=== PATIENT | male | born 1960 | race Caucasian/White ===

== ENCOUNTER 2017-11-19 16:05 | Inpatient (IN) | payer MEDICAID, MEDICARE ==
[~2017-11-19] VITALS: Ht 165.1 cm; Wt 77.1 kg
[~2017-11-19 16:05] MED LIST: ATOR80TA PO; BENA40TA3 PO; CLON0.3T PO; DILT180C3 PO; DOCU-138 PO; FISH OIL 1,01 CAP.EC PO; FURO-152 PO; GLIP5TAB12 PO; HYDR-4135 PO; METO-293 PO; METO25TA6 PO; NIAC500T2 PO; RANI150C12 PO
[2017-11-19 17:34] LABS: BASOPHILS % 0.6 % (0.0-2.0); EOSINOPHILS % 11.9 % (0.0-5.0); HEMATOCRIT. 33.5 % (42.0-52.0); HEMOGLOBIN. 11.2 g/dL (14.0-18.0); LYMPHOCYTES % 17.8 % (20.0-50.0); MEAN CORPUSCULAR HEMOGLOBIN 31.7 pg (28.0-32.0); MEAN CORPUSCULAR VOLUME 94.5 fL (80.0-94.0); MEAN PLATELET VOLUME 7.3 fl (7.4-10.4); MONOCYTES % 12.9 % (2.0-8.0); NEUTROPHILS % 56.8 % (40.0-76.0); PLATELET 209 x1000/uL (130-400); RED BLOOD CELL COUNT 3.54 mill/uL (4.7-6.1); RED CELL DISTRIBUTION WIDTH 13.9 % (11.6-14.6)
[2017-11-19 17:38] LABS: CHLORIDE 106 mEq/L (98-107)
[2017-11-19 17:40] LABS: PARTIAL THROMBOPLASTIN TIME 27.4 sec (23.4-31.0); PROTHROMBIN TIME 10.5 sec (9.4-11.6)
[2017-11-19] MEDS ORDERED: FUROSEMIDE 100MG/10ML VIAL IV STA (18:05)
[2017-11-19] MEDS ORDERED: ALBUTEROL (0.083%) 2.5MG/3ML NEB HHN ONE (18:15)
[2017-11-19] MEDS ORDERED: DEXTROSE 50% WATER 50ML SYRINGE IV ONE (18:15)
[2017-11-19] MEDS ORDERED: SODIUM BICARBONATE 8.4% 1 MEQ/ML 50ML SYR IV ONE (18:15)
[2017-11-19] MEDS ORDERED: CALCIUM CHLORIDE 1GM/10ML SYR IV ONE (18:15)
[2017-11-19] MEDS ORDERED: INSULIN REGULAR (HUMULIN R) 300UNITS/3ML IV ONE (18:15)
[2017-11-19] MEDS ORDERED: IPRATROPIUM/ALBUTEROL 0.5-3(2.5)MG/3ML NEB HHN PRN (18:30)
[2017-11-19] MEDS ORDERED: DIPHENHYDRAMINE 50MG/ML VIAL IV PRN (18:30)
[2017-11-19] MEDS: METOPROLOL TARTRATE 50MG TABLET PO SCH (21:00)
[2017-11-19] MEDS: BENAZEPRIL 20MG TABLET PO SCH (21:21)
[2017-11-19] MEDS: HYDRALAZINE HCL 100MG TABLET PO SCH (22:00)
[2017-11-19] MEDS: CLONIDINE 0.1MG TABLET PO SCH (22:00)
[2017-11-19] MEDS ORDERED: ATORVASTATIN CALCIUM 40MG TABLET PO SCH (22:00)
[2017-11-19 22:21] VITALS: BP 141/69
[2017-11-19] MEDS ORDERED: DEXTROSE 50% WATER 50ML SYRINGE IV PRN (23:45)
[2017-11-20] VITALS: BP 184/86
[2017-11-20 04:00] VITALS: BP 144/88
[2017-11-20] MEDS: HYDRALAZINE HCL 100MG TABLET PO SCH (06:00)
[2017-11-20] MEDS: CLONIDINE 0.1MG TABLET PO SCH (06:00)
[2017-11-20 06:37] LABS: HEMATOCRIT 33.1 % (42.0-52.0); HEMOGLOBIN 11.2 g/dL (14.0-18.0); MEAN CORPUSCULAR HEMOGLOBIN 31.6 pg (28.0-32.0); PLATELET 203 x1000/uL (130-400); RED BLOOD CELL COUNT 3.55 mill/uL (4.7-6.1); RED CELL DISTRIBUTION WIDTH 13.8 % (11.6-14.6)
[2017-11-20] MEDS ORDERED: BLOOD SUGAR DIAGNOSTIC STRIP TEST SCH (07:20)
[2017-11-20] MEDS ORDERED: INSULIN LISPRO 100 UNITS/ML SUBCUT SCH (07:50)
[2017-11-20 08:00] VITALS: BP 196/99
[2017-11-20] MEDS ORDERED: DILTIAZEM HCL 180MG CAPSULE CD 24HR PO SCH (09:00)
[2017-11-20] MEDS: METOPROLOL TARTRATE 50MG TABLET PO SCH (09:10)
[2017-11-20] MEDS: BENAZEPRIL 20MG TABLET PO SCH (09:10)
[2017-11-20 12:00] VITALS: BP 197/91
[2017-11-20] MEDS ORDERED: CLONIDINE 0.2MG TABLET PO NR (12:15)
[2017-11-20 12:54] VITALS: BP 197/91
[2017-11-20] MEDS ORDERED: CLONIDINE 0.3MG TABLET PO SCH (14:00)
== END 2017-11-20 13:30 | disposition home or self-care (01) | DRG 291 ==
LOC: CANRESERV 17:29 → ENRESERV 17:29 → ER 18:01 → 6WST 18:21 → EDBEDREQ 18:24 → ENRESERV 20:08
PROVIDERS: ADMIT Internal Medicine; ATTEND Internal Medicine
PROC: 5A1D70Z Performance of Urinary Filtration, Intermittent, Less than 6 Hours Per Day (ICD-10-PCS; principal; 2017-11-20)
DX: I13.2 Hypertensive heart and chronic kidney disease with heart failure and with stage 5 chronic kidney disease, or end stage renal disease (principal); N18.6 End stage renal disease; J96.00 Acute respiratory failure, unspecified whether with hypoxia or hypercapnia; K85.90 Acute pancreatitis without necrosis or infection, unspecified; I50.43 Acute on chronic combined systolic (congestive) and diastolic (congestive) heart failure; E87.5 Hyperkalemia; E78.5 Hyperlipidemia, unspecified; E11.22 Type 2 diabetes mellitus with diabetic chronic kidney disease; I16.0 Hypertensive urgency; D63.8 Anemia in other chronic diseases classified elsewhere; E78.00 Pure hypercholesterolemia, unspecified; Z86.73 Personal history of transient ischemic attack (TIA), and cerebral infarction without residual deficits; Z99.2 Dependence on renal dialysis; Z79.899 Other long term (current) drug therapy; Z79.84 Long term (current) use of oral hypoglycemic drugs
CPT/HCPCS: 36415; 71045; 80048; 80053; 82962; 83690; 84484; 85025; 85027; 85610; 85730; 93005; 96374; 96375; 99285; J1815; J1940; J3490; J7030

== ENCOUNTER 2018-03-12 17:03 | Emergency (ER) | payer MEDICARE ==
[~2018-03-12] VITALS: Ht 165.1 cm; Wt 82.0 kg
[~2018-03-12 17:03] MED LIST changes: +AMLO10TA80 MT; +ATOR40TA70 MT; -ATOR80TA PO; -BENA40TA3 PO; +CINA30 MT; -CLON0.3T PO; +CLOP75TA33 MT; -DILT180C3 PO; -DOCU-138 PO; -FISH OIL 1,01 CAP.EC PO; +FOLI0.8T23 MT; -FURO-152 PO; -GLIP5TAB12 PO; -HYDR-4135 PO; +INSU100I28 SQ; -METO-293 PO; +METO-411 MT; -METO25TA6 PO; -NIAC500T2 PO; -RANI150C12 PO
[2018-03-12 19:33] LABS: BASOPHILS % 0.4 % (0.0-2.0); EOSINOPHILS % 3.8 % (0.0-5.0); HEMATOCRIT. 36.6 % (42.0-52.0); HEMOGLOBIN. 11.9 g/dL (14.0-18.0); LYMPHOCYTES % 11.8 % (20.0-50.0); MEAN CORPUSCULAR HEMOGLOBIN 30.3 pg (28.0-32.0); MEAN CORPUSCULAR VOLUME 93.1 fL (80.0-94.0); MEAN PLATELET VOLUME 7.1 fl (7.4-10.4); MONOCYTES % 5.7 % (2.0-8.0); NEUTROPHILS % 78.3 % (40.0-76.0); PLATELET 249 x1000/uL (130-400); RED BLOOD CELL COUNT 3.93 mill/uL (4.7-6.1)
[2018-03-12 19:40] LABS: PROTHROMBIN TIME 9.9 sec (9.1-11.1)
[2018-03-12 19:44] LABS: CHLORIDE 101 mEq/L (98-107)
[2018-03-12] MEDS ORDERED: MORPHINE SULFATE 4 MG/ML CPJ (NOT FOR IM USE) IV ONE (21:15)
[2018-03-12 22:29] VITALS: BP 125/85
== END 2018-03-12 22:31 | disposition home or self-care (01) ==
LOC: ER 19:22
DX: K80.50 Calculus of bile duct without cholangitis or cholecystitis without obstruction (principal); E11.9 Type 2 diabetes mellitus without complications; I10 Essential (primary) hypertension; Z86.73 Personal history of transient ischemic attack (TIA), and cerebral infarction without residual deficits; Z98.890 Other specified postprocedural states; Z79.4 Long term (current) use of insulin; Z79.899 Other long term (current) drug therapy
CPT/HCPCS: 36415; 74176; 76705; 99285

== ENCOUNTER 2018-04-20 01:52 | Inpatient (IN) | payer MEDICARE ==
[~2018-04-20] VITALS: Ht 170.2 cm; Wt 76.2 kg
[2018-04-20 03:36] LABS: BASOPHILS % 0.5 % (0.0-2.0); HEMATOCRIT. 32.2 % (42.0-52.0); HEMOGLOBIN. 10.8 g/dL (14.0-18.0); LYMPHOCYTES % 18.5 % (20.0-50.0); MEAN CORPUSCULAR HEMOGLOBIN 30.6 pg (28.0-32.0); MEAN CORPUSCULAR VOLUME 90.7 fL (80.0-94.0); MEAN PLATELET VOLUME 7.7 fl (7.4-10.4); MONOCYTES % 9.8 % (2.0-8.0); NEUTROPHILS % 58.2 % (40.0-76.0); PLATELET 216 x1000/uL (130-400); RED BLOOD CELL COUNT 3.55 mill/uL (4.7-6.1); RED CELL DISTRIBUTION WIDTH 14.1 % (11.6-14.6)
[2018-04-20 03:42] LABS: CHLORIDE 100 mEq/L (98-107)
[2018-04-20 03:43] LABS: PROTHROMBIN TIME 10.4 sec (9.1-11.1)
[2018-04-20 03:46] LABS: ETHANOL BLOOD < 10 mg/dL
[2018-04-20 04:27] LABS: *COCAINE SCREEN URINE NEGATIVE (NEGATIVE)
[2018-04-20 04:28] LABS: *AMPHETAMINES SCREEN URINE NEGATIVE (NEGATIVE); *BARBITURATES SCREEN URINE NEGATIVE (NEGATIVE); CANNABINOID URINE SCREEN NEGATIVE (NEGATIVE); METHADONE URINE SCREEN NEGATIVE (NEGATIVE); OPIATES URINE SCREEN NEGATIVE (NEGATIVE); PHENCYCLIDINE URINE SCREEN NEGATIVE (NEGATIVE)
[2018-04-20 04:29] LABS: *BENZODIAZEPINES SCREEN URINE NEGATIVE (NEGATIVE)
[2018-04-20 04:32] LABS: CLARITY URINE CLEAR (CLEAR); COLOR URINE YELLOW (YELLOW); KETONES URINE NEGATIVE (NEGATIVE); LEUKOCYTE ESTERASE URINE NEGATIVE (NEGATIVE); NITRITE URINE NEGATIVE (NEGATIVE); OCCULT BLOOD URINE 1+ (NEGATIVE); PH URINE 7.5 (4.5-8.0); PROTEIN URINE 4+ (NEGATIVE); SPECIFIC GRAVITY URINE 1.012 (1.005-1.030); UROBILINOGEN URINE 0.2 E.U./dL (0.2-1.0)
[2018-04-20] MEDS ORDERED: METOPROLOL TARTRATE 25MG TABLET PO SCH (11:00)
[2018-04-20] MEDS ORDERED: ASPIRIN 325MG TABLET PO SCH (11:00)
[2018-04-20 12:00] VITALS: BP 161/93
[2018-04-20] MEDS ORDERED: DEXTROSE 50% WATER 50ML SYRINGE IV PRN (12:15)
[2018-04-20] MEDS: ASPIRIN 81MG TABLET PO SCH (12:31)
[2018-04-20] MEDS: BLOOD SUGAR DIAGNOSTIC STRIP TEST SCH ×3 (13:16→21:00)
[2018-04-20] MEDS: INSULIN LISPRO 100 UNITS/ML SUBCUT SCH ×3 (13:29→20:57)
[2018-04-20 13:51] VITALS: BP 161/93
[2018-04-20 16:00] VITALS: BP 165/83
[2018-04-20] MEDS: LOSARTAN POTASSIUM 50 MG TABLET PO SCH (18:00)
[2018-04-20] MEDS ORDERED: HYDROCODONE/ACETAMINOPHEN 5/325MG TABLET PO PRN (19:45)
[2018-04-20] MEDS ORDERED: TEMAZEPAM 15MG CAPSULE PO PRN (19:45)
[2018-04-20] MEDS ORDERED: DIPHENHYDRAMINE 50MG/ML VIAL IV PRN (19:45)
[2018-04-20] MEDS ORDERED: ACETAMINOPHEN 650MG/20.3ML UDC PO PRN (19:45)
[2018-04-20] MEDS ORDERED: CLONIDINE 0.1MG TABLET PO PRN ×2 (19:45→20:15)
[2018-04-20] MEDS ORDERED: DOCUSATE SODIUM 100MG CAPSULE PO PRN (19:45)
[2018-04-20] MEDS ORDERED: ACETAMINOPHEN 650MG SUPP PR PRN (19:45)
[2018-04-20 20:00] VITALS: BP 134/61
[2018-04-20] MEDS: METOPROLOL TARTRATE 50MG TABLET PO SCH (20:52)
[2018-04-20] MEDS: HEPARIN 5000 UNITS/ML VIAL SUBCUT SCH (20:54)
[2018-04-21] VITALS: BP 120/57
[2018-04-21 04:00] VITALS: BP 151/70
[2018-04-21 07:11] LABS: CHLORIDE 100 mEq/L (98-107)
[2018-04-21 07:20] LABS: HEMATOCRIT 33.1 % (42.0-52.0); HEMOGLOBIN 11.1 g/dL (14.0-18.0); MEAN CORPUSCULAR HEMOGLOBIN 30.6 pg (28.0-32.0); MEAN CORPUSCULAR VOLUME 91.4 fL (80.0-94.0); PLATELET 219 x1000/uL (130-400); RED BLOOD CELL COUNT 3.62 mill/uL (4.7-6.1); RED CELL DISTRIBUTION WIDTH 14.1 % (11.6-14.6); TOTAL IRON BINDING CAPACITY 201 ug/dL (250-450)
[2018-04-21] MEDS: BLOOD SUGAR DIAGNOSTIC STRIP TEST SCH ×2 (07:20→12:20)
[2018-04-21 07:23] LABS: LDL CHOLESTEROL 62 mg/dL (5-100)
[2018-04-21 07:25] LABS: HDL CHOLESTEROL 37 mg/dL (40-59)
[2018-04-21] MEDS: INSULIN LISPRO 100 UNITS/ML SUBCUT SCH ×2 (07:50→12:50)
[2018-04-21 08:00] VITALS: BP 158/79
[2018-04-21] MEDS: ASPIRIN 81MG TABLET PO SCH (09:22)
[2018-04-21] MEDS: METOPROLOL TARTRATE 50MG TABLET PO SCH (09:22)
[2018-04-21] MEDS: HEPARIN 5000 UNITS/ML VIAL SUBCUT SCH (09:22)
[2018-04-21] MEDS: LOSARTAN POTASSIUM 50 MG TABLET PO SCH (09:22)
[2018-04-21 15:13] VITALS: BP 170/84
[2018-04-21] MEDS ORDERED: HYDRALAZINE 20MG/ML VIAL IV ONE (16:30)
[2018-04-21 16:44] VITALS: BP 160/79
[2018-04-21] MEDS ORDERED: AMLODIPINE 5MG TABLET PO ONE (16:45)
[2018-04-21] MEDS ORDERED: FERROUS SULFATE 325MG TABLET PO SCH (17:00)
[2018-04-21 17:25] VITALS: BP 160/77
== END 2018-04-21 18:30 | disposition home or self-care (01) | DRG 291 ==
LOC: ER 02:57 → 6WST 04:06 → EDBEDREQ 04:09 → EDBEDREQTM 04:09 → ENRESERV 09:56
PROVIDERS: ADMIT Internal Medicine; ATTEND Internal Medicine
PROC: 5A1D70Z Performance of Urinary Filtration, Intermittent, Less than 6 Hours Per Day (ICD-10-PCS; principal; 2018-04-20)
DX: I13.2 Hypertensive heart and chronic kidney disease with heart failure and with stage 5 chronic kidney disease, or end stage renal disease (principal); I50.43 Acute on chronic combined systolic (congestive) and diastolic (congestive) heart failure; N18.6 End stage renal disease; R06.03 Acute respiratory distress; E78.5 Hyperlipidemia, unspecified; E11.22 Type 2 diabetes mellitus with diabetic chronic kidney disease; D64.9 Anemia, unspecified; Z79.4 Long term (current) use of insulin; Z79.899 Other long term (current) drug therapy; Z99.2 Dependence on renal dialysis
CPT/HCPCS: 36415; 71045; 80061; 80305; 82962; 83036; 83540; 83550; 83605; 83880; 84443; 84484; 85027; 93005; 93306; 93970; 99285; G0482; J0360; J1644; J1815

== ENCOUNTER 2018-04-30 20:05 | Inpatient (IN) | payer MEDICARE ==
[~2018-04-30] VITALS: Ht 193 cm; Wt 80.7 kg
[~2018-04-30 20:05] MED LIST changes: -AMLO10TA80 MT; -ATOR40TA70 MT; -CLOP75TA33 MT; -METO-411 MT
[2018-04-30] MEDS ORDERED: IPRATROPIUM/ALBUTEROL 0.5-3(2.5)MG/3ML NEB HHN ONE (21:00)
[2018-04-30] MEDS ORDERED: FUROSEMIDE 40MG/4ML VIAL IV ONE (21:00)
[2018-04-30] MEDS ORDERED: ASPIRIN 81MG TABLET PO ONE (21:00)
[2018-04-30 22:18] LABS: BASOPHILS % 0.6 % (0.0-2.0); CHLORIDE 104 mEq/L (98-107); EOSINOPHILS % 13.4 % (0.0-5.0); HEMATOCRIT. 34.7 % (42.0-52.0); HEMOGLOBIN. 11.5 g/dL (14.0-18.0); LYMPHOCYTES % 17.9 % (20.0-50.0); MEAN CORPUSCULAR HEMOGLOBIN 30.3 pg (28.0-32.0); MEAN CORPUSCULAR VOLUME 91.7 fL (80.0-94.0); MEAN PLATELET VOLUME 7.2 fl (7.4-10.4); MONOCYTES % 8.8 % (2.0-8.0); NEUTROPHILS % 59.3 % (40.0-76.0); PLATELET 264 x1000/uL (130-400); RED BLOOD CELL COUNT 3.78 mill/uL (4.7-6.1); RED CELL DISTRIBUTION WIDTH 14.6 % (11.6-14.6)
[2018-04-30 22:19] LABS: PROTHROMBIN TIME 10.2 sec (9.1-11.1)
[2018-05-01] MEDS ORDERED: CLONIDINE 0.2MG TABLET PO ONE (00:30)
[2018-05-01] MEDS ORDERED: LEVOFLOXACIN 750MG PREMIX 150 ML IV ONE (00:30)
[2018-05-01 03:32] VITALS: BP 170/88
[2018-05-01 04:00] VITALS: BP 162/83
[2018-05-01 08:00] VITALS: BP 155/66
[2018-05-01] MEDS ORDERED: INFLUENZA VIRUS VACCINE(AFLURIA) 0.5ML SYR IM ONE (10:00)
[2018-05-01] MEDS ORDERED: DOCUSATE SODIUM 100MG CAPSULE PO PRN (10:30)
[2018-05-01] MEDS ORDERED: MAGNESIUM/ALUMINUM HYDROXIDE/SIMETHICONE 30ML UDC PO PRN (10:30)
[2018-05-01] MEDS ORDERED: GUAIFENESIN 200MG/10ML SUGAR FREE UDC PO PRN (10:30)
[2018-05-01] MEDS ORDERED: DIPHENHYDRAMINE 50MG/ML VIAL IV PRN (10:30)
[2018-05-01] MEDS ORDERED: ONDANSETRON HCL 4MG/2ML INJ IV PRN (10:30)
[2018-05-01] MEDS ORDERED: HYDROCODONE/ACETAMINOPHEN 5/325MG TABLET PO PRN (10:30)
[2018-05-01] MEDS ORDERED: IPRATROPIUM/ALBUTEROL 0.5-3(2.5)MG/3ML NEB INH PRN (10:30)
[2018-05-01] MEDS ORDERED: ACETAMINOPHEN 650MG SUPP PR PRN (10:30)
[2018-05-01] MEDS ORDERED: ACETAMINOPHEN 325MG TABLET PO PRN (10:30)
[2018-05-01] MEDS ORDERED: DEXTROSE 50% WATER 50ML SYRINGE IV PRN (10:30)
[2018-05-01] MEDS ORDERED: LORAZEPAM 0.5MG TABLET PO PRN (10:30)
[2018-05-01 11:34] VITALS: BP 119/71
[2018-05-01 12:00] VITALS: BP 144/77
[2018-05-01] MEDS: INSULIN LISPRO 100 UNITS/ML SUBCUT SCH ×3 (12:06→20:58)
[2018-05-01] MEDS: BLOOD SUGAR DIAGNOSTIC STRIP TEST SCH ×3 (12:20→20:57)
[2018-05-01] MEDS: AMLODIPINE 5MG TABLET PO SCH (13:15)
[2018-05-01] MEDS: HEPARIN 5000 UNITS/ML VIAL SUBCUT SCH ×2 (13:15→20:43)
[2018-05-01 13:16] LABS: HEMATOCRIT 30.8 % (42.0-52.0); HEMOGLOBIN 10.2 g/dL (14.0-18.0); MEAN CORPUSCULAR HEMOGLOBIN 30.5 pg (28.0-32.0); MEAN CORPUSCULAR VOLUME 92.4 fL (80.0-94.0); PLATELET 223 x1000/uL (130-400); RED BLOOD CELL COUNT 3.33 mill/uL (4.7-6.1); RED CELL DISTRIBUTION WIDTH 14.7 % (11.6-14.6)
[2018-05-01 20:31] VITALS: BP 147/71
[2018-05-01] MEDS ORDERED: LEVOFLOXACIN 250MG PREMIX 50 ML IV SCH (23:00)
[2018-05-02] VITALS (7 sets, daily range): BP systolic 157–184; BP diastolic 78–97
[2018-05-02] MEDS: CLONIDINE 0.1MG TABLET PO PRN (01:10)
[2018-05-02] MEDS: BLOOD SUGAR DIAGNOSTIC STRIP TEST SCH ×4 (06:02→21:13)
[2018-05-02] MEDS: INSULIN LISPRO 100 UNITS/ML SUBCUT SCH ×4 (07:05→21:14)
[2018-05-02 07:45] LABS: BASOPHILS % 0.5 % (0.0-2.0); EOSINOPHILS % 14.9 % (0.0-5.0); HEMATOCRIT. 31.3 % (42.0-52.0); HEMOGLOBIN. 10.7 g/dL (14.0-18.0); LYMPHOCYTES % 20.2 % (20.0-50.0); MEAN CORPUSCULAR HEMOGLOBIN 31.1 pg (28.0-32.0); MEAN CORPUSCULAR VOLUME 90.8 fL (80.0-94.0); MEAN PLATELET VOLUME 7.2 fl (7.4-10.4); MONOCYTES % 11.4 % (2.0-8.0); PLATELET 235 x1000/uL (130-400); RED BLOOD CELL COUNT 3.45 mill/uL (4.7-6.1); RED CELL DISTRIBUTION WIDTH 14.7 % (11.6-14.6)
[2018-05-02 08:06] LABS: CHLORIDE 102 mEq/L (98-107)
[2018-05-02 08:27] LABS: PHOSPHORUS 4.9 mg/dL (2.5-4.9)
[2018-05-02 08:29] LABS: LDL CHOLESTEROL 51 mg/dL (5-100)
[2018-05-02 08:30] LABS: HDL CHOLESTEROL 41 mg/dL (40-59)
[2018-05-02] MEDS: AMLODIPINE 5MG TABLET PO SCH (08:34)
[2018-05-02] MEDS: HEPARIN 5000 UNITS/ML VIAL SUBCUT SCH ×2 (08:35→20:57)
[2018-05-02] MEDS: LOSARTAN POTASSIUM 50 MG TABLET PO SCH (14:00)
[2018-05-02] MEDS ORDERED: METOPROLOL TARTRATE 25MG TABLET PO NR (14:00)
[2018-05-02] MEDS: METOPROLOL TARTRATE 25MG TABLET PO SCH (21:14)
[2018-05-02 23:43] LABS: CLARITY URINE CLEAR (CLEAR); COLOR URINE YELLOW (YELLOW); KETONES URINE NEGATIVE (NEGATIVE); LEUKOCYTE ESTERASE URINE NEGATIVE (NEGATIVE); NITRITE URINE NEGATIVE (NEGATIVE); OCCULT BLOOD URINE TRACE (NEGATIVE); PH URINE >=9.0 (4.5-8.0); PROTEIN URINE 4+ (NEGATIVE); SPECIFIC GRAVITY URINE 1.009 (1.005-1.030); UROBILINOGEN URINE 0.2 E.U./dL (0.2-1.0)
[2018-05-03] VITALS (8 sets, daily range): BP systolic 138–181; BP diastolic 71–94
[2018-05-03] MEDS: BLOOD SUGAR DIAGNOSTIC STRIP TEST SCH ×4 (06:33→21:25)
[2018-05-03 06:34] LABS: HEMATOCRIT 31.9 % (42.0-52.0); HEMOGLOBIN 10.9 g/dL (14.0-18.0); MEAN CORPUSCULAR HEMOGLOBIN 31.1 pg (28.0-32.0); MEAN CORPUSCULAR VOLUME 90.7 fL (80.0-94.0); PLATELET 239 x1000/uL (130-400); RED BLOOD CELL COUNT 3.51 mill/uL (4.7-6.1); RED CELL DISTRIBUTION WIDTH 14.5 % (11.6-14.6)
[2018-05-03] MEDS: INSULIN LISPRO 100 UNITS/ML SUBCUT SCH ×4 (07:27→21:00)
[2018-05-03] MEDS: LOSARTAN POTASSIUM 50 MG TABLET PO SCH (09:08)
[2018-05-03] MEDS: AMLODIPINE 5MG TABLET PO SCH (09:08)
[2018-05-03] MEDS: HEPARIN 5000 UNITS/ML VIAL SUBCUT SCH ×2 (09:08→21:25)
[2018-05-03] MEDS: METOPROLOL TARTRATE 25MG TABLET PO SCH ×2 (09:08→21:25)
[2018-05-03] MEDS ORDERED: METOPROLOL TARTRATE 25MG TABLET PO NR (10:45)
[2018-05-03] MEDS: CLONIDINE 0.1MG TABLET PO PRN (17:36)
[2018-05-03] MEDS ORDERED: AMLODIPINE 5MG TABLET PO NR (19:45)
[2018-05-03] MEDS ORDERED: LEVOFLOXACIN 250MG TABLET PO SCH (21:00)
[2018-05-04 00:11] VITALS: BP 164/89
[2018-05-04 04:00] VITALS: BP 163/85
[2018-05-04] MEDS: BLOOD SUGAR DIAGNOSTIC STRIP TEST SCH ×3 (07:01→17:20)
[2018-05-04] MEDS: INSULIN LISPRO 100 UNITS/ML SUBCUT SCH ×2 (07:49→12:50)
[2018-05-04 08:00] VITALS: BP 151/70
[2018-05-04] MEDS: LOSARTAN POTASSIUM 50 MG TABLET PO SCH (08:37)
[2018-05-04] MEDS: HEPARIN 5000 UNITS/ML VIAL SUBCUT SCH (08:38)
[2018-05-04] MEDS: METOPROLOL TARTRATE 25MG TABLET PO SCH (08:38)
[2018-05-04] MEDS ORDERED: AMLODIPINE 5MG TABLET PO SCH (09:00)
[2018-05-04] MEDS ORDERED: AMLODIPINE 10MG TABLET PO SCH (09:00)
[2018-05-04 12:00] VITALS: BP 157/63
[2018-05-04 16:00] VITALS: BP 146/77
[2018-05-04 17:25] VITALS: BP 149/77
== END 2018-05-04 19:20 | disposition home or self-care (01) | DRG 291 ==
LOC: ER 20:05 → 6WST 05-01 00:40 → EDBEDREQDT 05-01 00:47 → EDBEDREQTM 05-01 00:47 → EDBEDREQ 05-01 00:47 → ENRESERV 05-01 01:11
PROVIDERS: ADMIT Internal Medicine; ATTEND Internal Medicine
PROC: 5A1D70Z Performance of Urinary Filtration, Intermittent, Less than 6 Hours Per Day (ICD-10-PCS; 2018-05-01)
PROC: 5A1D70Z Performance of Urinary Filtration, Intermittent, Less than 6 Hours Per Day (ICD-10-PCS; 2018-05-02)
PROC: 5A1D70Z Performance of Urinary Filtration, Intermittent, Less than 6 Hours Per Day (ICD-10-PCS; principal; 2018-05-04)
DX: I13.2 Hypertensive heart and chronic kidney disease with heart failure and with stage 5 chronic kidney disease, or end stage renal disease (principal); I50.43 Acute on chronic combined systolic (congestive) and diastolic (congestive) heart failure; J18.9 Pneumonia, unspecified organism; N18.6 End stage renal disease; I26.99 Other pulmonary embolism without acute cor pulmonale; N39.0 Urinary tract infection, site not specified; E87.5 Hyperkalemia; D64.9 Anemia, unspecified; Z99.2 Dependence on renal dialysis; E11.649 Type 2 diabetes mellitus with hypoglycemia without coma; E11.22 Type 2 diabetes mellitus with diabetic chronic kidney disease; R06.03 Acute respiratory distress; E78.00 Pure hypercholesterolemia, unspecified; Z91.19 Patient's noncompliance with other medical treatment and regimen; Z79.899 Other long term (current) drug therapy
CPT/HCPCS: 36415; 71045; 78582; 80048; 80061; 82962; 83605; 83735; 83880; 84100; 84439; 84443; 84484; 85027; 87077; 87804; 90686; 93005; 94640; 96365; 96375; 99285; A9558; J1644; J1815; J1940; J1956; J7050; J7620

== ENCOUNTER 2018-07-01 21:13 | Inpatient (IN) | payer MEDICARE ==
[~2018-07-01] VITALS: Ht 162.6 cm; Wt 77.3 kg
[2018-07-02] MEDS ORDERED: HYDRALAZINE 20MG/ML VIAL IV ONE (02:00)
[2018-07-02] MEDS ORDERED: ALBUTEROL (0.083%) 2.5MG/3ML NEB HHN ONE (02:00)
[2018-07-02 02:33] LABS: HEMATOCRIT. 34.5 % (42.0-52.0); HEMOGLOBIN. 11.5 g/dL (14.0-18.0); MEAN CORPUSCULAR HEMOGLOBIN 30.5 pg (28.0-32.0); MEAN CORPUSCULAR VOLUME 91.8 fL (80.0-94.0); MEAN PLATELET VOLUME 7.5 fl (7.4-10.4); PLATELET 231 x1000/uL (130-400); RED BLOOD CELL COUNT 3.76 mill/uL (4.7-6.1); RED CELL DISTRIBUTION WIDTH 14.7 % (11.6-14.6)
[2018-07-02 02:42] LABS: PROTHROMBIN TIME 10.1 sec (9.1-11.1)
[2018-07-02 02:44] LABS: CHLORIDE 100 mEq/L (98-107)
[2018-07-02 02:53] LABS: PLATELET ESTIMATE NORMAL
[2018-07-02] MEDS ORDERED: NITROGLYCERIN OINT 1GM/INCH UDPKT TD ONE (03:45)
[2018-07-02 03:54] LABS: CLARITY URINE CLEAR (CLEAR); COLOR URINE YELLOW (YELLOW); KETONES URINE NEGATIVE (NEGATIVE); LEUKOCYTE ESTERASE URINE NEGATIVE (NEGATIVE); NITRITE URINE NEGATIVE (NEGATIVE); OCCULT BLOOD URINE 1+ (NEGATIVE); PH URINE 8.5 (4.5-8.0); PROTEIN URINE 4+ (NEGATIVE); SPECIFIC GRAVITY URINE 1.011 (1.005-1.030); UROBILINOGEN URINE 0.2 E.U./dL (0.2-1.0)
[2018-07-02] MEDS ORDERED: ASPIRIN 81MG TABLET PO ONE (05:00)
[2018-07-02] MEDS ORDERED: ACETAMINOPHEN 325MG TABLET PO PRN ×2 (05:00→16:30)
[2018-07-02 14:45] VITALS: BP 158/86
[2018-07-02 16:00] VITALS: BP 172/83
[2018-07-02] MEDS: AMLODIPINE 10MG TABLET PO SCH (16:30)
[2018-07-02] MEDS ORDERED: IPRATROPIUM/ALBUTEROL 0.5-3(2.5)MG/3ML NEB INH PRN (16:30)
[2018-07-02] MEDS ORDERED: HYDROCODONE/ACETAMINOPHEN 5/325MG TABLET PO PRN (16:30)
[2018-07-02] MEDS ORDERED: ONDANSETRON HCL 4MG/2ML INJ IV PRN (16:30)
[2018-07-02] MEDS: CLONIDINE 0.1MG TABLET PO PRN (17:33)
[2018-07-02] MEDS: ENOXAPARIN 30MG/0.3ML SYR SUBCUT SCH (17:35)
[2018-07-02] MEDS ORDERED: DEXTROSE 50% WATER 50ML SYRINGE IV PRN (19:30)
[2018-07-02 20:00] VITALS: BP 157/87
[2018-07-02] MEDS: BLOOD SUGAR DIAGNOSTIC STRIP TEST SCH (21:03)
[2018-07-02] MEDS: INSULIN LISPRO 100 UNITS/ML SUBCUT SCH (21:09)
[2018-07-03] VITALS: BP 154/86
[2018-07-03 04:00] VITALS: BP 132/73
[2018-07-03] MEDS: INSULIN LISPRO 100 UNITS/ML SUBCUT SCH ×3 (06:17→17:25)
[2018-07-03] MEDS: BLOOD SUGAR DIAGNOSTIC STRIP TEST SCH ×3 (06:17→17:25)
[2018-07-03 08:02] VITALS: BP 158/89
[2018-07-03] MEDS: AMLODIPINE 10MG TABLET PO SCH (08:43)
[2018-07-03 09:03] LABS: BASOPHILS % 0.6 % (0.0-2.0); EOSINOPHILS % 13.3 % (0.0-5.0); HEMATOCRIT. 33.6 % (42.0-52.0); HEMOGLOBIN. 11.2 g/dL (14.0-18.0); LYMPHOCYTES % 19.1 % (20.0-50.0); MEAN CORPUSCULAR HEMOGLOBIN 30.8 pg (28.0-32.0); MEAN CORPUSCULAR VOLUME 92.2 fL (80.0-94.0); MEAN PLATELET VOLUME 7.6 fl (7.4-10.4); MONOCYTES % 10.5 % (2.0-8.0); NEUTROPHILS % 56.5 % (40.0-76.0); PLATELET 190 x1000/uL (130-400); RED BLOOD CELL COUNT 3.64 mill/uL (4.7-6.1); RED CELL DISTRIBUTION WIDTH 14.8 % (11.6-14.6)
[2018-07-03 09:23] LABS: CHLORIDE 107 mEq/L (98-107)
[2018-07-03 09:39] LABS: CREATINE KINASE 74 IU/L (39-308); LDL CHOLESTEROL 130 mg/dL (5-100); T4 FREE 1.03 ng/dL (0.76-1.46)
[2018-07-03 09:40] LABS: HDL CHOLESTEROL 36 mg/dL (40-59)
[2018-07-03 12:00] VITALS: BP 162/88
[2018-07-03] MEDS: CLONIDINE 0.1MG TABLET PO PRN (12:30)
[2018-07-03 16:00] VITALS: BP 155/81
[2018-07-03 16:32] VITALS: BP 155/81
[2018-07-03] MEDS: ENOXAPARIN 30MG/0.3ML SYR SUBCUT SCH (17:27)
[2018-07-03] MEDS ORDERED: ATORVASTATIN CALCIUM 40MG TABLET PO SCH (21:00)
== END 2018-07-03 19:03 | disposition home or self-care (01) | DRG 291 ==
LOC: ER 23:45 → 8WST 07-02 04:40 → EDBEDREQ 07-02 04:43 → EDBEDREQTM 07-02 04:43 → ENRESERV 07-02 12:10
PROVIDERS: ADMIT Internal Medicine; ATTEND Internal Medicine
PROC: 5A1D70Z Performance of Urinary Filtration, Intermittent, Less than 6 Hours Per Day (ICD-10-PCS; principal; 2018-07-02)
DX: I13.2 Hypertensive heart and chronic kidney disease with heart failure and with stage 5 chronic kidney disease, or end stage renal disease (principal); I50.43 Acute on chronic combined systolic (congestive) and diastolic (congestive) heart failure; N18.6 End stage renal disease; E78.5 Hyperlipidemia, unspecified; I16.0 Hypertensive urgency; E87.5 Hyperkalemia; E11.22 Type 2 diabetes mellitus with diabetic chronic kidney disease; E78.00 Pure hypercholesterolemia, unspecified; Z99.2 Dependence on renal dialysis; Z79.4 Long term (current) use of insulin; Z79.899 Other long term (current) drug therapy
CPT/HCPCS: 36415; 71045; 80048; 80061; 82550; 82962; 83880; 84439; 84443; 84484; 93005; 94640; 96374; 99285; J0360; J1650; J1815; J7611